=== PATIENT | male | born 1990 | race Caucasian/White ===

== ENCOUNTER 2021-03-18 11:26 | Emergency (ER) | payer OTHER, SELFPAY ==
[2021-03-18 11:43] VITALS: BP 128/76; PULSE 88; RESP 20; TEMP 36.9; O2SAT 98; BMI 37.4
--- NOTE | 2021-03-18 12:09 | PC.NURSE ---
large but shallow lac to right arm. bleeding continues. additional gauze and elevation used.
[2021-03-18] MEDS: Lidocaine HCl 1 % 20 ML VIAL 5 ML SUBCUT (13:18)
--- NOTE | 2021-03-18 13:37 | ED.WOUNDLAC ---
HPI - Wound/Laceration General Chief Complaint: Wound/Laceration Stated Complaint: Wound/laceration Time Seen by Provider: 03/18/21 12:33 Source: patient Mode of arrival: ambulatory Limitations: no limitations History of Present Illness HPI narrative: Patient is a 31-year-old male with no significant past medical history who states he was throwing away some steel at his work place when this deal caught his arm and cut his left forearm. He states his last tetanus was in 2019. He denies pain, states he has full range of motion when his wrist and hand and fingers. Related Data Allergies Allergy/AdvReac Type Severity Reaction Status Date / Time Penicillins [PENICILLINS] Allergy Intermediate RASH Verified 03/18/21 11:41 Review of Systems Review of Systems: Yes all other systems are reviewed and are negative [facility], [facility] Past Medical History Medical History Hiatal hernia Social History Social History Advance Directives: No Advance Directives Information Provided: Yes Physical Exam Vital Signs: Vital Signs: Last Vital Signs Temp 98.4 F 03/18/21 11:43 Pulse 88 03/18/21 11:43 Resp 20 03/18/21 11:43 BP 128/76 03/18/21 11:43 Pulse Ox 98 03/18/21 11:43 Body Mass Index 37.4 Const: General: cooperative, healthy appearing, comfortable, no acute distress and well developed Orientation/consciousness: patient oriented x3 Limitations: no limitations Skin: Other: Right dorsal forearm, 5 cm superficial laceration, bleeding controlled. Linear. Neuro: General: patient oriented x3 Procedures Laceration Laceration 1: Site: upper extremity Side (If applicable): right Size (cm): 5 Description: linear Depth: simple, single layer Local Anesthetic: lidocaine 1% Amount of anesthesia used (mL): 4 Pre-repair: wound explored and irrigated extensively (with sterile saline and iodine) Skin layer closed with: nylon Size (cm): 5-0 Number of sutures: 5 Technique: simple, interrupted Discharge Plan Discharge Clinical Impression: Laceration Patient Disposition: Home, Self-Care Instructions: Laceration (ED) Additional Instructions: As discussed, please keep the wound clean and dry. Please cover it if you go out in public. Otherwise you can leave it open to air while your home. You do not need to apply any special appointments. Is okay to wash and dry it with soap and water. Please have the sutures removed in 7-10 days. If the wound becomes red or painful or starts using any liquid or you notice streaking going up your arms. Please return to the emergency department or follow-up with her PCP.
== END 2021-03-18 14:14 | disposition home or self-care (01) ==
PROVIDERS: Emergency Provider Emergency Medicine; PCP Internal Medicine
DX: S51.811A Laceration without foreign body of right forearm, initial encounter (principal); W26.8XXA Contact with other sharp object(s), not elsewhere classified, initial encounter; Y93.9 Activity, unspecified; Y92.89 Other specified places as the place of occurrence of the external cause; Y99.0 Civilian activity done for income or pay
CPT/HCPCS: 12002; 99283; 99284